=== PATIENT | female | born 1995 | race Caucasian/White ===

== ENCOUNTER 2018-04-21 10:21 | Emergency (ER) | payer OTHER ==
[~2018-04-21] VITALS: Ht 162.6 cm; Wt 120.2 kg
[2018-04-21 11:04] LABS: HEMATOCRIT 42.7 % (36.0-46.0); MCH 30.5 PG (29.0-34.0); MCHC 35.1 G/DL (30.0-36.0); MCV 86.8 FL (83-99); PLATELET COUNT 302 K/uL (156-360); RBC DIS.WIDTH-CV 12.3 % (11.8-14.6); RBC DIS.WIDTH-SD 39.3 % (39-53); RED BLOOD COUNT 4.92 M/uL (3.80-5.20); WHITE BLOOD COUNT 8.6 K/uL (4.1-10.2)
[2018-04-21 11:21] LABS: ALBUMIN 4.3 g/dL (3.2-4.8); CHLORIDE 104 mEq/L (99-109); SODIUM 138 mEq/L (136-147)
[2018-04-21 11:23] LABS: GLUCOSE 88 mg/dL (70-99)
[2018-04-21 11:24] LABS: TOTAL PROTEIN 7.4 g/dL (6.4-8.3)
[2018-04-21 11:25] LABS: TOTAL BILIRUBIN 0.3 mg/dL (0.0-1.0)
[2018-04-21 11:27] LABS: ALKALINE PHOSPHATASE 76 IU/L (3-129); CREATININE 0.7 mg/dL (0.6-1.3)
[2018-04-21 11:28] LABS: UREA NITROGEN (BUN) 11 mg/dL (9-23)
[2018-04-21 11:29] LABS: GFR ESTIMATE (CALCULATED) > 59 mL/min/
[2018-04-21 11:30] LABS: ALT (GPT) 21 IU/L (3-49)
[2018-04-21 11:35] LABS: APPEARANCE CLEAR ((CLEAR)); BILIRUBIN NEGATIVE; BLOOD NEGATIVE; COLOR YELLOW ((YELLOW)); GLUCOSE (STRIP) NEGATIVE; KETONES 5; LEUKOCYTES NEGATIVE; NITRITE NEGATIVE; PROTEIN (STRIP) NEGATIVE; SPECIFIC GRAVITY 1.021 (1.000-1.030); UCUL ADDED? NO; UROBILINOGEN 0.2 MG/DL (0.2-1.0)
[2018-04-21 11:35] LABS: QUANTITATIVE HCG < 4.0 MIU/ML
[2018-04-21 11:44] LABS: LIPASE 22 U/L (1.0-51.0)
[2018-04-21 12:10] LABS: AST (GOT) 23 IU/L (2-34)
[2018-04-21] MEDS ORDERED: BENTYL20 MG PO (14:08)
[2018-04-21] MEDS ORDERED: ZOFRAN ODT4 MG PO (14:08)
[2018-04-21 14:15] VITALS: BP 138/70
== END 2018-04-21 14:15 | disposition home or self-care (01) ==
LOC: EME 10:21
DX: R10.11 Right upper quadrant pain (principal)
CPT/HCPCS: 74176; 80053; 81003; 83690; 84702; 85027; 99281; 99284